=== PATIENT | male | born 1990 | race Caucasian/White ===

== ENCOUNTER → 2020-07-09 | Outpatient (CLI) | payer MEDICARE, OTHER ==
[~2020-07-09] MED LIST: ALLERCLEAR10 MG PO; CIPRO500 MG PO; CLEOCIN HCL300 MG PO; CRESTOR5 MG PO; FISH OIL 1,0001 EAC5 PO; FLAGYL500 MG PO; HYDROCHLOROTH12.5 MG PO; LEVOTHYROXINE50 MC1 PO; NORCO 5-325 TA1 EACH PO; VITAMIN D325 MCG PO; ZYLOPRIM300 MG PO
== END ==
LOC: CT 12:03
DX: R31.9 Hematuria, unspecified (principal); N20.0 Calculus of kidney

== ENCOUNTER → 2020-07-21 | Outpatient (CLI) | payer MEDICARE, OTHER | LOC: EXRD 15:08 | DX: N20.0 Calculus of kidney (principal) | CPT/HCPCS: 74018 ==

== ENCOUNTER → 2020-08-05 | Day surgery (SDC) | payer MEDICARE, OTHER ==
[~2020-08-05] VITALS: Ht 147.3 cm; Wt 68.0 kg
== END | disposition home or self-care (01) ==
LOC: OR 08:29
DX: N20.0 Calculus of kidney (principal); M10.9 Gout, unspecified; I10 Essential (primary) hypertension; E78.5 Hyperlipidemia, unspecified; E03.9 Hypothyroidism, unspecified; E55.9 Vitamin D deficiency, unspecified; F70 Mild intellectual disabilities; Z88.1 Allergy status to other antibiotic agents; Z88.0 Allergy status to penicillin; Z88.6 Allergy status to analgesic agent; Z88.8 Allergy status to other drugs, medicaments and biological substances; Z79.899 Other long term (current) drug therapy
CPT/HCPCS: C1769; C2617; J1100; J1580; J2001; J2250; J2405; J2704; J3010; J7030; J7120

== ENCOUNTER → 2020-08-25 | Outpatient (CLI) | payer MEDICARE, OTHER | LOC: EXRD 15:44 | DX: N20.0 Calculus of kidney (principal) | CPT/HCPCS: 74018 ==

== ENCOUNTER → 2021-11-08 | Outpatient (CLI) | payer MEDICARE, OTHER | LOC: LAB 11:10 | DX: R50.9 Fever, unspecified (principal); Z20.822 Contact with and (suspected) exposure to COVID-19 | CPT/HCPCS: U0002 ==